=== PATIENT | male | born 1995 | race Caucasian/White ===

== ENCOUNTER 2020-08-16 20:28 | Emergency (ER) | payer MEDICAID, SELFPAY ==
[2020-08-16 21:28] VITALS: BP 134/69; PULSE 82; RESP 16; TEMP 36.8; O2SAT 99; BMI 28.2
--- NOTE | 2020-08-16 22:33 | ED.NECK ---
HPI - Neck Pain/Injury General Chief Complaint: Neck Pain/Injury Stated Complaint: NECK PAIN Time Seen by Provider: 08/16/20 22:11 Source: patient Mode of arrival: ambulatory Limitations: no limitations History of Present Illness HPI Narrative: Patient presents to ED for right-sided neck pain for the past 2 days. Patient states he was at home the bathroom and coughed real hard and suddenly felt pain in his right posterior neck after walking. Patient states he pulled a muscle. Patient denies any head trauma or recent blunt neck trauma. Patient denies falling to the ground. Patient denies any neck stiffness, fever, chills, headache, nausea, vomiting, photophobia, or dizziness. MD complaint: neck pain Related Data Previous Rx's Medication Instructions Recorded cyclobenzaprine 10 mg PO TID PRN #18 tab 08/16/20 naproxen 500 mg PO BID PRN #20 tab 08/16/20 Allergies Allergy/AdvReac Type Severity Reaction Status Date / Time No Known Allergies Allergy Verified 08/16/20 21:26 Review of Systems Review of Systems: Yes all other systems are reviewed and are negative Constitutional: Constitutional: Reports as per HPI and Reports no additional constitutional complaints Eyes: Eyes: Reports as per HPI and Reports no additional eye complaints ENT: Reports system reviewed and no additional complaints, except as documented and Reports neck pain Cardiovascular: Cardiovascular: Reports as per HPI and Reports no additional cardiovascular complaints Respiratory: Respiratory: Reports as per HPI and Reports no additional respiratory complaints Gastrointestinal: Gastrointestinal: Reports as per HPI and Reports no additional gastrointestinal complaints Genitourinary: Genitourinary: Reports no additional male genitourinary complaints and Reports as per HPI Musculoskeletal: Musculoskeletal: Reports no additional musculoskeletal complaints, Reports as per HPI and Reports neck pain Neurologic: Reports system reviewed and no additional complaints, except as documented and Reports as per HPI Psychiatric: Psychiatric: Reports no additional psychiatric complaints and Reports as per HPI [facility] Past Medical History Medical History (Updated 08/17/20 @ 00:00 by Sam Dasonja) Asthma Social History Social History Smoked in Last 30 Days: No Use of substances other than those prescribed or required for medical reasons: Yes Substance Use Type: Marijuana Advance Directives: No Advance Directives Information Provided: No Physical Exam Vital Signs: Vital Signs: Last Vital Signs Temp 98.2 F 08/16/20 21:28 Pulse 82 08/16/20 21:28 Resp 16 08/16/20 21:28 BP 134/69 08/16/20 21:28 Pulse Ox 99 08/16/20 21:28 Body Mass Index 28.2 Const: General: cooperative, healthy appearing, comfortable, no acute distress, well developed and alert Orientation/consciousness: patient oriented x3 HENMT: Head: Yes normal to inspection, Yes No palpable skull fracture present, Yes normocephalic, Yes atraumatic, No abrasion, No Pedroza's sign, No contusion, No cranial bruits, No hematoma, No laceration, No occipital foramen tenderness, No palpable skull fracture, No raccoon eyes, No scalp lesion, No scalp tenderness, No Temporal artery tenderness present and No periorbital ecchymosis Eyes: General: appearance normal, both eyes and all related structures Neck: Other: Patient also states pain on movement when turning head to the right. Neck: Yes normal visual inspection, Yes full ROM, Yes no lymphadenopathy, Yes no meningeal signs, Yes trachea midline, Yes supple and Yes tender (Right lateral posterior neck. Negative for cervical spine tenderness.) Chest: Chest palpation & inspection: normal inspection of the chest and normal palpation of entire chest wall Resp: Effort & Inspection: normal respiratory effort and able to speak in complete sentences Auscultation: clear to auscultation bilaterally Cardio: Jugular venous distension: no JVD Heart sounds: S1 normal heart sound present and S2 normal heart sound present GI: Inspection: Yes normal to inspection and No abdominal wall ecchymosis Palpation (GI): Soft to palpation, not firm, nontender, no guarding and not rigid : General: No CVA tenderness and Yes no CVA tenderness Back/Spine/Pelvis: Back: no CVA tenderness, No CVA tenderness and No back tenderness Skin: General skin exam: no rashes or lesions noted and elasticity normal Neuro: General: patient oriented x3, no meningeal signs and CN's II-XI intact bilaterally Cranial nerves: Yes CN's II-XII intact bilaterally Extrem: General: Yes normal to inspection and Yes full ROM Psych: Appearance: grossly normal, well kempt and not disheveled Course Course Course Narrative: Patient's history physical exam indicate neck muscle strain. History physical exam does not indicate meningitis or fracture. Reevaluation(s) Reevaluation #1: Patient discharged with NSAIDs and Flexeril MDM - Neck Pain/Injury MDM Narrative Medical decision making narrative: Neck strain Discharge Plan Discharge Clinical Impression: Strain of neck muscle Patient Disposition: Home, Self-Care Instructions: Cervical Strain (ED) Additional Instructions: Return to the ED immediately neck stiffness, headache, photophobia, fever, chills, nausea, vomiting, or any other concerning symptoms. Prescriptions: New naproxen 500 mg tablet 500 mg PO BID PRN (Reason: pain) Qty: 20 RF: 0 cyclobenzaprine 10 mg tablet 10 mg PO TID PRN (Reason: muscle spasm) Qty: 18 RF: 0 Interventions: ED Discharge Assessment Last Done: 08/16/20 23:00 Discharge Date/Time: 08/16/20 23:01 Print Language: Upper Sorbian
== END 2020-08-16 23:01 | disposition home or self-care (01) ==
PROVIDERS: Emergency Provider Internal Medicine; PCP Pediatrics
DX: S16.1XXA Strain of muscle, fascia and tendon at neck level, initial encounter (principal); X50.9XXA Other and unspecified overexertion or strenuous movements or postures, initial encounter; J45.909 Unspecified asthma, uncomplicated; F12.90 Cannabis use, unspecified, uncomplicated; Y93.9 Activity, unspecified; Y92.019 Unspecified place in single-family (private) house as the place of occurrence of the external cause; Y99.9 Unspecified external cause status
CPT/HCPCS: 99283

== ENCOUNTER 2021-02-05 14:21 | Outpatient (REF) | payer MEDICAID, SELFPAY | END 2021-02-05 14:22 | disposition home or self-care (01) | LOC: HO.LAB 14:21 | PROVIDERS: Visit Provider Internal Medicine | DX: Z20.822 Contact with and (suspected) exposure to COVID-19 (principal) | CPT/HCPCS: C9803; U0003; U0005 ==

== ENCOUNTER 2021-03-25 18:50 | Emergency (ER) | payer OTHER, MEDICAID, SELFPAY ==
[2021-03-25 19:00] VITALS: BP 130/70; PULSE 67; RESP 17; TEMP 36.7; O2SAT 97; BMI 28.2
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
[2021-03-25] MEDS: Ibuprofen 600 MG TABLET PO (20:14)
--- NOTE | 2021-03-25 20:51 | PC.NURSE ---
PT WAS NERVOUS ABOUT FROM THE SMOKE IN AIR BAG DO TO HAVING ASTHMA. PT LS CLEAR AND HE DENIES FEELING SOB.
== END 2021-03-25 20:54 | disposition home or self-care (01) ==
PROVIDERS: Emergency Provider Internal Medicine; PCP Internal Medicine
DX: S29.012A Strain of muscle and tendon of back wall of thorax, initial encounter (principal); V43.62XA Car passenger injured in collision with other type car in traffic accident, initial encounter; Y93.89 Activity, other specified; Y92.414 Local residential or business street as the place of occurrence of the external cause; Y99.9 Unspecified external cause status
CPT/HCPCS: 99283; 99284

== ENCOUNTER 2023-08-21 12:24 | Emergency (ER) | payer MEDICAID, SELFPAY ==
[2023-08-21 12:26] VITALS: BP 142/73; PULSE 58; RESP 17; TEMP 35.6; O2SAT 97; BMI 34.7
--- NOTE | 2023-08-21 12:30 | ED.GENADULT ---
HPI - General Adult General Chief complaint: Headache Stated complaint: severe headache Time Seen by Provider: 08/21/23 18:15 Source: patient Mode of arrival: ambulatory Limitations: no limitations History of Present Illness HPI narrative: Patient is a 28 year old assigned male at with no reported medical history presenting to the emergency department today with a headache, neck pain, nausea, and vomiting. Patient states that starting over the last 3 days he has had a headache and starting today, he had nausea and an episode of vomiting. Patient denies any dizziness, lightheadedness, abdominal pain, fever, chills, blurry vision, double vision, loss of vision, chest pain, difficulty breathing, shortness of breath, back pain, night sweats, pain with urination, increased urinary frequency, increased urinary urgency, blood in his urine or stool, syncope or a near syncopal episode, recent trauma or falls, bowel incontinence, bladder incontinence, bowel retention, bladder retention, or any other complaints at this time. Onset (ago): day(s) (3) Location: head Relieving factors: none Exacerbating factors: none Associated symptoms: nausea/vomiting Treatments prior to arrival: none Related Data Previous Rx's Medication Instructions Recorded cyclobenzaprine 10 mg tablet 10 mg PO TID PRN muscle spasm #18 08/16/20 tabs naproxen 500 mg tablet 500 mg PO BID PRN pain #20 tabs 08/16/20 cyclobenzaprine 10 mg tablet 10 mg PO Q8H #14 tabs 03/25/21 ibuprofen 600 mg tablet 600 mg PO Q6H PRN pain #20 tabs 03/25/21 [id number] 1 cap PO Q6H PRN pain #7 caps 08/21/23 50 mg-300 mg-40 mg capsule (Fioricet) ondansetron 4 mg disintegrating 4 mg PO Q8H 3 days #9 tabs 08/21/23 tablet Allergies Allergy/AdvReac Type Severity Reaction Status Date / Time No Known Allergies Allergy Verified 03/25/21 18:59 Review of Systems Constitutional: Constitutional: Reports no additional constitutional complaints, Denies chills, Denies fever(s), Reports headache(s) and Denies night sweats Eyes: Eyes: Reports no additional eye complaints, Denies blurry vision, Denies change in vision, Denies diplopia, Denies eye discharge, Denies loss of vision and Denies eye pain ENT: Denies dizziness and Reports headache(s) Cardiovascular: Cardiovascular: Reports no additional cardiovascular complaints, Denies chest pain, Denies lightheadedness, Denies Loss of Consciousness and Denies dyspnea Respiratory: Respiratory: Reports no additional respiratory complaints and Denies dyspnea Gastrointestinal: Gastrointestinal: Reports no additional gastrointestinal complaints, Denies abdominal pain, Denies melena, Denies hematochezia, Denies change in bowel habits, Denies change in stool character, Reports nausea and Reports vomiting Genitourinary: Genitourinary: Reports no additional male genitourinary complaints, Denies hematuria, Denies oliguria, Denies difficulty urinating, Denies dysuria, Denies urinary frequency, Denies urinary hesitancy, Denies urinary incontinence and Denies urinary urgency Musculoskeletal: Musculoskeletal: Reports no additional musculoskeletal complaints, Denies numbness and Denies tingling Neurologic: Denies dizziness, Reports headache(s), Denies loss of vision, Denies numbness and Denies tingling Psychiatric: Psychiatric: Reports no additional psychiatric complaints Endocrine: Endocrine: Reports no additional endocrine complaints Hematologic/Lymphatic: Hematologic/Lymphatic: Reports no additional hematologic/lymphatic complaints Allergic/Immunologic: Allergic/Immunologic: Reports no additional allergic/immunologic complaints PMFSH Past Medical History Attestation statement: The following information was validated with the patient. Source: old records reviewed and nursing notes reviewed Medical History Asthma Social History Social History Substance Use Type: Marijuana Advance Directives: No Advance Directives Information Provided: Yes Physical Exam ED Vital Signs: Vital Signs - 24 hr 08/21/23 12:26 Temperature 96.0 F L Pulse Rate 58 Respiratory Rate 17 Blood Pressure 142/73 H Pulse Oximetry 97 Oxygen Delivery Method Room Air BMI result Body Mass Index 34.7 Const General: cooperative, no acute distress, alert and awake Nutritional Appearance: well nourished Orientation/consciousness: patient oriented x3 Limitations: no limitations HENMT Head: Yes normal to inspection and Yes atraumatic Ears: hearing grossly normal bilaterally and external ears normal General nose exam: Normal external nose present, no nasal discharge noted and no epistaxis Face and sinus: Yes normal facial exam, No abrasion and No laceration Mouth: Normal oral and palatal mucosa present, no drooling and no muffled voice Eyes General: appearance normal, both eyes and all related structures Periorbital: periorbital findings normal Eyelids: Yes eyelids normal Conjunctivae: conjunctivae normal Pupils: Equal, round and reactive pupils present EOM: EOMs intact bilaterally Neck Neck: Yes normal visual inspection, Yes full ROM and Yes no lymphadenopathy Chest Chest palpation & inspection: normal inspection of the chest Resp Effort & Inspection: normal respiratory effort and able to speak in complete sentences GI Inspection: Yes normal to inspection Neuro General: patient oriented x3 and moves all extremities Cranial nerves: Yes Equal, round and reactive pupils present Cognition (Neuro): normal cognition Motor exam (neuro): 5/5 motor strength present throughout Sensory Exam: Normal double simultaneous stimulation for sensation Coordination: [id number] test normal Extrem General: Yes normal to inspection, Yes full ROM and Yes capillary refill normal Psych Appearance: grossly normal Mental Status: mental status grossly normal Affect: normal affect Attitude: cooperative Thought process: Normal thought process present Thought content: Normal thought content present Insight: Good insight present (Psych) Course Course Course Narrative: RME performed by Isabel Little PA-C. Patient is a 28 year old assigned male at presenting to the emergency department with a headache, congestion, and neck pain. Patient states that his pain feels better when he looks down. Some nausea and vomiting. Detailed physical exam and review of systems are deferred to the district manager primary care sales. Labs and swabs ordered. Patient placed back in the waiting room pending room availability and results. Medications Administered Discontinued Medications Generic Name Dose Route Start Last Admin Trade Name Kaykay PRN Reason Stop Dose Admin Acetaminophen/Butalbital/Caffeine 1 tab 08/21/23 18:15 08/21/23 18:22 Butalb/Acetamin/Caff 50/325/40 Tablet PO 08/21/23 18:16 1 tab ONCE ONE Administration Ondansetron HCl 4 mg 08/21/23 18:15 08/21/23 18:21 Ondansetron Odt 4 Mg Tab.Rapdis TRANSLINGU 08/21/23 18:16 4 mg ONCE ONE Administration Medical Decision Making Medical Decision Making MDM Narrative: Patient is a 28 year old assigned male at with no reported medical history presenting to the emergency department today with a headache, nausea, and vomiting. Patient's physical exam was unremarkable including no meningeal signs. Patient's blood work was unremarkable. Patient's COVID-19, influenza, RSV, and strep tests were all negative. I explained my physical exam findings as well as all test results to the patient. I answered all questions asked by the patient. Patient received PO Fiorcet and Zofran which he stated helped his symptoms significantly. I stressed the importance of the patient taking his medication as prescribed. I stressed the importance of the patient following up with his primary care provider. I stressed the importance of the patient returning to the emergency department immediately if his symptoms were to worsen or if he were to develop any dizziness, shortness of breath, difficulty breathing, chest pain, blurry vision, loss of vision, nausea, vomiting, abdominal pain, fever, chills, back pain, or any other complaints. Patient verbalized agreement and understanding with this treatment plan and discharge. Differential Diagnosis Differential Diagnoses: The differential diagnosis associated with the presentation includes Migraine COVID-19 Influenza RSV Viral illness Headache Admission/Observation Consideration of admission/observation: Escalation of care including admission/observation considered Patient would have been admitted to the hospital had his work up had any findings where hospital admission was appropriate and his clinical presentation warranted hospital admission. Lab Data [facility] Lab Attestation statement: I reviewed the patient's lab results. My interpretation of these results are in the [facility] Rationale portion of this note. 08/21/23 12:41 08/21/23 12:41 Labs: Lab Results 08/21/23 Range/Units 12:41 WBC 7.5 (4.8-10.8) X10*3/uL RBC 5.62 (4.60-5.80) X10*6/uL Hgb 15.0 (14.0-18.0) g/dl Hct 45.3 (42.0-52.0) % MCV 80.6 (80.0-98.0) fL MCH 26.7 L (27.0-33.0) pg MCHC 33.1 (31.0-36.0) g/dl RDW 12.9 (11.0-16.0) % Plt Count 295 (160-400) X10*3/uL MPV 9.3 L (9.4-12.4) fL Immature Gran % (Auto) 0.3 (0.0-0.4) % Neut % (Auto) 53.1 (45-73) % Lymph % (Auto) 33.0 (20-40) % [place] % (Auto) 9.1 (2-11) % Eos % (Auto) 4.0 (0-4) % Baso % (Auto) 0.5 (0-2) % Lymph # (Auto) 2.5 (1.2-4.9) X10*3/uL [place] # (Auto) 0.7 (0.1-1.2) X10*3/uL Eos # (Auto) 0.3 (0.0-0.4) X10*3/uL Baso # (Auto) 0.0 (0.0-0.2) X10*3/uL Abs Immat Gran (auto) 0.02 (0.00-0.03) X10*3/uL Absolute Neuts (auto) 4.0 (2.0-8.3) x10*3/uL Absolute Nucleated RBC 0.000 (0.0-0.012) X10*3/uL Nucleated RBC % (auto) 0.0 (0.0-0.2) /100WBC Sodium 139 (135-145) mmol/L Potassium 3.9 (3.3-5.1) mmol/L Chloride 106 (96-108) mmol/L Carbon Dioxide 25 (22-29) mmol/L Anion Gap 12 (12-20) BUN 12 (9-16) mg/dL Creatinine 0.80 (0.5-1.4) mg/dL Estim Creat Clear Calc 151.6 Estimated GFR > 60 Random Glucose 133 H (60-115) mg/dL Calcium 9.7 (8.4-10.2) mg/dL Magnesium 1.9 (1.6-2.6) mg/dL Total Bilirubin 0.3 (0.0-1.0) mg/dL AST 20 (5-37) U/L ALT 32 (0-40) U/L Alkaline Phosphatase 58 (39-117) U/L Total Protein 7.9 (6.5-8.0) g/dL Albumin 4.6 (3.5-5.0) g/dL Influenza Type A (PCR) NEGATIVE (Negative) Influenza Type B (PCR) NEGATIVE (Negative) RSV RNA Qual (PCR) NEGATIVE (Negative) SARS-CoV-2 RNA (RT-PCR) NEGATIVE (Negative) S. pyogenes GrpA LIBBY Negative (Negative) Tests considered The following testing was considered but not selected: A CT of the head was considered however, the patient's current clinical presentation does not warrant it. I discussed this with the patient who verbalized agreement and understanding with this. Prescription Management I considered prescription management with: Pain Medication (patient prescribed pain medication) Discharge Plan Discharge Clinical Impression: Migraine Patient Disposition: Home, Self-Care Instructions: Migraine Headache (ED) Additional Instructions: Follow up with your primary care provider. Return to the emergency department immediately if your symptoms worsen or if you develop any dizziness, shortness of breath, difficulty breathing, chest pain, blurry vision, loss of vision, nausea, vomiting, abdominal pain, fever, chills, back pain, or any other complaints. Prescriptions: New ondansetron 4 mg tablet,disintegrating 4 mg PO Q8H 3 Days Qty: 9 0RF [id number]-[id number]-mzcr [Fioricet] 50-300-40 mg capsule 1 cap PO Q6H PRN (Reason: pain) Qty: 7 0RF No Action naproxen 500 mg tablet 500 mg PO BID PRN (Reason: pain) Qty: 20 0RF cyclobenzaprine 10 mg tablet 10 mg PO TID PRN (Reason: muscle spasm) Qty: 18 0RF Rx Instructions: side effect is drowsiness. Do not take at work or while driving. ibuprofen 600 mg tablet 600 mg PO Q6H PRN (Reason: pain) Qty: 20 0RF cyclobenzaprine 10 mg tablet 10 mg PO Q8H Qty: 14 0RF Referrals: [facility] [place] [facility] [Provider Group] (Call to establish and follow up with a primary care provider. If you already have a primary care provider, please follow up with them.) [facility] [place] [facility] [Provider Group] (Call to establish and follow up with a primary care provider. If you already have a primary care provider, please follow up with them.) [facility] [place] [facility] [Provider Group] (Call to establish and follow up with a primary care provider. If you already have a primary care provider, please follow up with them.) Discharge Date/Time: 08/21/23 18:25 Print Language: Greenlandic
[2023-08-21 12:46] LABS: MANUAL DIFF FLAG NO
[2023-08-21 12:48] LABS: Basophils Percent Auto 0.5 % (0-2); Eosinophils Absolute Auto 0.3 X10*3/uL (0.0-0.4); Hematocrit 45.3 % (42.0-52.0); Imm Gran Abs Auto 0.02 X10*3/uL (0.00-0.03); Imm Gran Pct Auto 0.3 % (0.0-0.4); Lymphocytes Absolute Auto 2.5 X10*3/uL (1.2-4.9); Mean Corpuscular HGB Conc 33.1 g/dl (31.0-36.0); Mean Corpuscular Hemoglobin 26.7 pg (27.0-33.0); Mean Corpuscular Volume 80.6 fL (80.0-98.0); Mean Platelet Volume 9.3 fL (9.4-12.4); Monocytes Absolute Auto 0.7 X10*3/uL (0.1-1.2); Monocytes Percent Auto 9.1 % (2-11); Neutrophils Percent Auto 53.1 % (45-73); Platelet Count 295 X10*3/uL (160-400); Red Blood Count 5.62 X10*6/uL (4.60-5.80); Red Cell Distribution Width 12.9 % (11.0-16.0); White Blood Count 7.5 X10*3/uL (4.8-10.8)
[2023-08-21 13:01] LABS: IDNOW Serial# 08D9AD1C
[2023-08-21 13:02] LABS: Strep A Nucleic Acid Negative (Negative)
[2023-08-21 13:05] LABS: Alanine Aminotransferase 32 U/L (0-40); Albumin Level 4.6 g/dL (3.5-5.0); Alkaline Phosphatase 58 U/L (39-117); Anion Gap 12 (12-20); Aspartate Amino Transferase 20 U/L (5-37); Bilirubin Total 0.3 mg/dL (0.0-1.0); Blood Urea Nitrogen 12 mg/dL (9-16); Calcium 9.7 mg/dL (8.4-10.2); Carbon Dioxide 25 mmol/L (22-29); Chloride 106 mmol/L (96-108); Creatinine Clr Calc Pharmacy 151.6; Estimated Glomerular Filt Rate > 60; Glucose Random 133 mg/dL (60-115); Magnesium 1.9 mg/dL (1.6-2.6); Potassium 3.9 mmol/L (3.3-5.1); Sodium 139 mmol/L (135-145); Total Protein 7.9 g/dL (6.5-8.0)
[2023-08-21 13:32] LABS: Influenza A PCR NEGATIVE (Negative); Influenza B PCR NEGATIVE (Negative); Resp Syncy Virus RNA Qual PCR NEGATIVE (Negative); SARS COV2 PCR INHOUSE NEGATIVE (Negative)
[2023-08-21] MEDS: Ondansetron ODT 4 MG TAB.RAPDIS TRANSLINGU (18:21)
[2023-08-21] MEDS: Butalb/Acetamin/Caff 50/325/40 TABLET 1 TAB PO (18:22)
--- NOTE | 2023-08-21 18:24 | PC.NURSE ---
PT WAS REASSESSED BT TRIAGE PROVIDER, MEDICATED AND DISCHARGED, PT AGREES TO DISCHARGE PLAN
== END 2023-08-21 18:25 | disposition home or self-care (01) ==
LOC: HO.ED 18:21
PROVIDERS: Physician Assistant Medical; Emergency Provider Emergency Medicine Emergency Medical Services
DX: G43.909 Migraine, unspecified, not intractable, without status migrainosus (principal); J45.909 Unspecified asthma, uncomplicated; Z11.52 Encounter for screening for COVID-19; Z20.828 Contact with and (suspected) exposure to other viral communicable diseases
CPT/HCPCS: 0241U; 80053; 83735; 85025; 87651; 99282; 99283

== ENCOUNTER 2023-11-24 12:46 | Emergency (ER) | payer MEDICAID, SELFPAY ==
--- NOTE | ~2023-11-24 | XR_ITS ---
EXAMINATION: Right ankle and foot x-ray CLINICAL INFORMATION: Injury COMPARISON: None. TECHNIQUE: 3 views of the right ankle. 3 views of the right foot. FINDINGS: Bone alignment is normal. No fracture or dislocation. Normal joint spaces. Normal soft tissues. XR/XR ankle RT min 3V IMPRESSION: Unremarkable examination.
--- NOTE | ~2023-11-24 | XR_ITS ---
EXAMINATION: Right ankle and foot x-ray CLINICAL INFORMATION: Injury COMPARISON: None. TECHNIQUE: 3 views of the right ankle. 3 views of the right foot. FINDINGS: Bone alignment is normal. No fracture or dislocation. Normal joint spaces. Normal soft tissues. XR/XR foot RT min 3V IMPRESSION: Unremarkable examination.
[2023-11-24 12:49] VITALS: BP 125/51; PULSE 63; RESP 18; TEMP 36.6; O2SAT 96; BMI 31.0
--- NOTE | 2023-11-24 12:57 | ED.GENADULT ---
HPI - General Adult General Chief complaint: Extremity Injury, Lower Stated complaint: r ankle inj basketball yesterday Time Seen by Provider: 11/24/23 15:32 Source: patient Mode of arrival: ambulatory Limitations: no limitations History of Present Illness ED Provider: Haley TANG narrative: Patient is a 28-year-old male who presents emergency department for evaluation of traumatic right ankle pain, reports last night he was walking and rolled his ankle with inversion of the foot. Approximately 1 hour later the pain BP and to be more severe and who was unable to put weight on it. Pain continues today, today he reports that he awoke and was noticing swelling and increasing pain to the anterior aspect of the ankle. He denies numbness tingling or cold sensation to the foot. Related Data Previous Rx's ?Medication ?Instructions ?Recorded cyclobenzaprine 10 mg tablet 10 mg PO TID PRN muscle spasm #18 08/16/20 tabs naproxen 500 mg tablet 500 mg PO BID PRN pain #20 tabs 08/16/20 cyclobenzaprine 10 mg tablet 10 mg PO Q8H #14 tabs 03/25/21 ibuprofen 600 mg tablet 600 mg PO Q6H PRN pain #20 tabs 03/25/21 lwnunwtzan-asvvcjrtrxfhn-eusoruei 1 cap PO Q6H PRN pain #7 caps 08/21/23 50 mg-300 mg-40 mg capsule (Fioricet) ondansetron 4 mg disintegrating 4 mg PO Q8H 3 days #9 tabs 08/21/23 tablet Allergies Allergy/AdvReac Type Severity Reaction Status Date / Time No Known Allergies Allergy Verified 11/24/23 12:51 Review of Systems Review of Systems: Yes all other systems are reviewed and are negative [facility] Past Medical History Attestation statement: The following information was validated with the patient. Source: old records reviewed Medical History Asthma Social History Social History Substance Use Type: Marijuana Advance Directives: No Advance Directives Information Provided: No Do you have a plan to hurt others: No Plan Physical Exam ED Vital Signs: Vital Signs - 24 hr 11/24/23 12:49 Temperature 98 F Pulse Rate 63 Respiratory Rate 18 Blood Pressure 125/51 L Pulse Oximetry 96 Oxygen Delivery Method Room Air BMI result Body Mass Index 31.0 Appearance: Alert.?Oriented to person, place and time. No acute distress.?Normal affect. Neck: Normal inspection.? Neck supple.?? CVS: Heart sounds normal. Normal heart rate and rhythm.? Pulses normal.?? Respiratory: No respiratory distress.? Lung sounds clear to auscultation bilaterally?? Skin: Skin warm and dry.? Normal skin color.? Extremities: Localized edema to the right anterior ankle mortise/medial malleolus with 2+ DP/PT pulse bilaterally no obvious deformity. Neuro: Moves all extremities spontaneously. Sensation intact bilaterally. Ambulates with Antalgic gait. Course Course Course Narrative: RME performed by Isabel Little PA-C. Patient is a 28 year old assigned male at presenting to the emergency department with right ankle pain. Patient states he rolled his ankle yesterday and continues to have pain. Detailed physical exam and review of systems are deferred to the internal communications specialist. Imaging ordered. Patient placed back in the waiting room pending room availability and results. Medical Decision Making Medical Decision Making MDM Narrative: patient is a 28-year-old male who presents emergency department for evaluation of traumatic right ankle pain. Overall he appears well, nontoxic, afebrile. Extremity is neurovascularly intact distally. XR is without evidence of acute fracture dislocation. Symptoms at this time most consistent with a sprain. Provided with Aircast and crutches and instructed on appropriate usage. Advised conservative treatment in addition to acetaminophen/ ibuprofen for pain management. Outpatient follow-up with primary care provider. Discussed return precautions. All questions answered, stable for discharge Differential Diagnosis Differential Diagnoses: The differential diagnosis associated with the presentation includes ( see narrative above) Independent Interpretation I performed an independent interpretation of an: Plain X-Ray ( no acute fracture dislocation of the right foot/ankle) Radiology Impression Discussion of test interpretation with radiology: I have reviewed the radiologist's reading. Radiologist Impression: XR/XR ankle RT min 3V IMPRESSION: Unremarkable examination. External Record Review External record reviewed: Outpatient record Prescription Management I considered prescription management with: Pain Medication ( acetaminophen/ibuprofen) Discharge Plan Discharge Clinical Impression: Sprain of ankle Qualifiers: Encounter type: initial encounter Laterality: right Patient Disposition: Home, Self-Care Instructions: Ankle Sprain (DC), Crutch Instructions (ED), R.I.C.E. Treatment (ED) Additional Instructions: You can take ibuprofen 200 mg, 3 tablets (600mg) every 6-8 hours as needed for pain, in addition to Tylenol 500 mg, 2 tablets (1,000mg) every 4-6 hours as needed for pain, but not to exceed 3 doses daily (3,000mg).? use the Aircast and crutches as needed for assistance with walking until your improves. As discussed, ankle sprains can take up to 6 weeks to fully heal for some people. Follow-up with your primary care provider for persistent symptoms. Prescriptions: No Action naproxen 500 mg tablet 500 mg PO BID PRN (Reason: pain) Qty: 20 0RF cyclobenzaprine 10 mg tablet 10 mg PO TID PRN (Reason: muscle spasm) Qty: 18 0RF Rx Instructions: side effect is drowsiness. Do not take at work or while driving. ibuprofen 600 mg tablet 600 mg PO Q6H PRN (Reason: pain) Qty: 20 0RF cyclobenzaprine 10 mg tablet 10 mg PO Q8H Qty: 14 0RF ondansetron 4 mg tablet,disintegrating 4 mg PO Q8H 3 Days Qty: 9 0RF ujvavqlamd-yyqhuzqsgnejx-niey [Fioricet] 50-300-40 mg capsule 1 cap PO Q6H PRN (Reason: pain) Qty: 7 0RF Referrals: [facility] [Primary Care Provider] - Print Language: Israeli
[2023-11-24 16:00] VITALS: BP 125/51; PULSE 63; RESP 18; TEMP 36.6; O2SAT 96
== END 2023-11-24 16:01 | disposition home or self-care (01) ==
PROVIDERS: Emergency Provider Emergency Medicine
DX: S93.401A Sprain of unspecified ligament of right ankle, initial encounter (principal); M25.571 Pain in right ankle and joints of right foot; Y93.67 Activity, basketball; Y93.9 Activity, unspecified; Y92.310 Basketball court as the place of occurrence of the external cause; Y99.8 Other external cause status
CPT/HCPCS: 73610; 73630; 99282; 99283

== ENCOUNTER 2024-10-09 12:21 | Emergency (ER) | payer MEDICAID, SELFPAY ==
[2024-10-09 12:29] VITALS: BP 128/96; PULSE 64; RESP 16; TEMP 36.3; O2SAT 94; BMI 30.6
--- NOTE | 2024-10-09 12:34 | ED_ITS ---
HPI - Dental/Oral General Chief complaint: Dental/Oral Stated complaint: Dental Infection Time Seen by Provider: 10/09/24 12:43 Source: patient, RN notes reviewed and old records reviewed Mode of arrival: ambulatory Limitations: no limitations History of Present Illness ED Provider: Cynthia TANG Narrative: Patient is a 29-year-old male with history of smoking presenting to the emergency department with complaint of right lower jaw pain which began yesterday. He used Orajel and salt water gargle, also stop smoking and states pain has improved this morning. When he woke this morning he noted swelling to his right lower jaw. Denies fevers or chills. Denies any discharge or drainage. Does not have a dentist currently but states his girlfriend is making phone calls to find him a dentist to follow up with today. Related Data Previous Rx's ?Medication ?Instructions ?Recorded cyclobenzaprine 10 mg tablet 10 mg PO TID PRN muscle spasm #18 08/16/20 tabs naproxen 500 mg tablet 500 mg PO BID PRN pain #20 tabs 08/16/20 cyclobenzaprine 10 mg tablet 10 mg PO Q8H #14 tabs 03/25/21 ibuprofen 600 mg tablet 600 mg PO Q6H PRN pain #20 tabs 03/25/21 xbjgvnnuqr-fkjmcmrsklyat-rrtyexdi 1 cap PO Q6H PRN pain #7 caps 08/21/23 50 mg-300 mg-40 mg capsule (Fioricet) ondansetron 4 mg disintegrating 4 mg PO Q8H 3 days #9 tabs 08/21/23 tablet amoxicillin 875 mg-potassium 1 tab PO TID 7 days #21 tabs 10/09/24 clavulanate 125 mg tablet chlorhexidine gluconate 0.12 % 15 ml buccal BID 7 days #118 mL 10/09/24 mouthwash Allergies Allergy/AdvReac Type Severity Reaction Status Date / Time No Known Allergies Allergy Verified 10/09/24 12:32 Review of Systems 2 Review of Systems: As per HPI Yes all other systems are reviewed and are negative Constitutional: Constitutional: Reports as per HPI PMFSH Past Medical History Medical History Asthma Social History Social History Substance Use Type: Marijuana Physical Exam 2 Vital Signs: Vital Signs: Last Vital Signs Temp 97.4 F 10/09/24 12:29 Pulse 64 10/09/24 12:29 Resp 16 10/09/24 12:29 BP 128/96 H 10/09/24 12:29 Pulse Ox 94 10/09/24 12:29 O2 Del Method Room Air 10/09/24 12:29 BMI result Body Mass Index 30.6 Vital signs have been reviewed and appear to be correct. Blood pressure normal. Heart rate normal. Respiratory rate normal. Temperature normal. Oxygen saturation normal. Const: General: cooperative, healthy appearing and no acute distress O rientation/consciousness: oriented to person, oriented to place, oriented to time and patient oriented x3 Limitations: no limitations HEENT: Head: Yes normocephalic and Yes atraumatic Ears: external ears normal General nose exam: Normal external nose present Face and sinus: Yes face symmetric Face images: 1. mild swelling Mouth: Normal oral and palatal mucosa present, lip normal, tongue normal, oropharynx normal, moist mucous membranes, no audible dysphonia and no drooling Teeth and gingiva: poor dentition Teeth image: 1. tooth fractured, gingival erythema and edema without fluctuance Throat: Yes uvula midline Eyes: Pupils: Equal, round and reactive pupils present Neck: Neck: Yes normal visual inspection and Yes supple Lymphatic: no lymphadenopathy noted Resp: Effort & Inspection: normal respiratory effort and able to speak in complete sentences Auscultation: clear to auscultation bilaterally Cardio: Rate: regular rate Rhythm: regular rhythm Heart sounds: S1 normal heart sound present and S2 normal heart sound present Skin: General skin exam: elasticity normal and turgor normal Neuro: General: oriented to person, oriented to place, oriented to time, patient oriented x3, moves all extremities, no focal motor deficits and CN's II- XI intact bilaterally Cranial nerves: Yes Equal, round and reactive pupils present Cognition (Neuro): normal cognition Extrem: General: Yes full ROM, Yes no pedal edema and Yes no calf tenderness Psych: Mental Status: mental status grossly normal Affect: normal affect Thought process: Normal thought process present Medical Decision Making Medical Decision Making MDM Narrative: Patient is a 29-year-old male with history of smoking presenting to the emergency department with complaint of right lower jaw pain which began yesterday. On exam patient is awake, A+Ox3, VS WNL, afebrile, normal neurological exam without focal deficits, physical exam findings as above. Given reported symptoms and physical exam findings, initial differential includes but is not limited to toothache, dental infection, dental abscess. No visible abscess to drain. Will discharge patient on augmentin and chlorhexidine mouthwash. Patient provided with list of dental clinics and advised to follow up [facility]. Strict return precautions discussed with patient. Patient verbalized understanding of and agreement with plan. Differential Diagnosis Differential Diagnoses: The differential diagnosis associated with the presentation includes As per [facility] Admission/Observation Consideration of admission/observation: Escalation of care including admission/observation considered Patient would have been admitted to the hospital had their work up had any findings where hospital admission was appropriate and their clinical presentation warranted hospital admission. External Record Review External record reviewed: Inpatient record, Office record and Outpatient record Prescription Management I considered prescription management with: Antibiotic Discharge Plan Discharge Clinical Impression: Dental abscess Patient Disposition: Home, Self-Care Instructions: Dental Abscess (ED) Additional Instructions: You were evaluated in the emergency department today for complaint of dental pain. You are being treated for a dental infection with antibiotics. Please complete the full course of antibiotics as prescribed even if your symptoms improve. IT IS IMPORTANT THAT YOU FOLLOW UP WITH YOUR DENTIST. We recommend that you take 600 mg of ibuprofen or 650 mg Tylenol every 6 hours as needed for pain. If necessary, you can alternate these medications every 3 hours. For example, at 9:00 a.m. take Tylenol, then at noon take ibuprofen, then at 3:00 p.m. take Tylenol, etc.. You can continue to swish with warm salt water several times daily. You are also being prescribed a mouthwash, use as prescribed. Follow up with a dentist as soon as possible. Return to the emergency department if you develop worsening pain, swelling, difficulty swallowing, difficulty breathing, fever, or any other concerning symptoms. Call or visit any of the clinics below to establish care with a dentist: [facility] [address] [place] [address] [facility] [address] [facility], [address] Timothy Francois [address] [place] [address] [facility] [address] [address] [facility] [address] [place], [place] [id number] [place] [address] [place] [address] Prescriptions: New chlorhexidine gluconate 0.12 % mouthwash 15 ml buccal BID 7 Days Qty: 118 0RF amoxicillin-pot clavulanate 875-125 mg tablet 1 tab PO TID 7 Days Qty: 21 0RF No Action naproxen 500 mg tablet 500 mg PO BID PRN (Reason: pain) Qty: 20 0RF cyclobenzaprine 10 mg tablet 10 mg PO TID PRN (Reason: muscle spasm) Qty: 18 0RF Rx Instructions: side effect is drowsiness. Do not take at work or while driving. ibuprofen 600 mg tablet 600 mg PO Q6H PRN (Reason: pain) Qty: 20 0RF cyclobenzaprine 10 mg tablet 10 mg PO Q8H Qty: 14 0RF ondansetron 4 mg tablet,disintegrating 4 mg PO Q8H 3 Days Qty: 9 0RF uhllxlojml-ffxijrvlhrdjw-iusj [Fioricet] 50-300-40 mg capsule 1 cap PO Q6H PRN (Reason: pain) Qty: 7 0RF Print Language: Qatari
[2024-10-09 12:50] VITALS: BP 128/96; PULSE 64; RESP 16; TEMP 36.3; O2SAT 94
--- OUTSIDE RECORDS SUMMARY | 2024-10-09 14:49 | XMS_ITS | Encounter Summary ---
Author Organization [facility] Address [address] [place] [phone] Phone Care Team Providers Care Sampler Tester Name Role Phone Cole Baires MD Primary Care Provider Unavailabl e Encounter Details Date Type Department Care Team (Late st Contact Info) Description 08/14/2014 Documentation EM Family Medicine [address] [place], [place] [id number] Family Medicine, Physician [address] [place], [place] [id number] Social History Tobacco Use Types Packs/Day Years Used Date Smoking Tobacco: Never Assessed Sex and Gender Information Value Date Recorded Sex Assigned at Not on file Legal Sex Male 5:00 PM EDT Gender Identity Not on file Sexual Orientation Not on file documented as of this encounter Plan of Treatment Not on file documented as of this encounter Visit Diagnoses Not on filedocumented in this encounter Care Teams Sampler Tester Relationship Specialty Start Date End Date Cole Baires MD PCP - General 01/06/17 documented as of this encounter
--- OUTSIDE RECORDS SUMMARY | 2024-10-09 14:49 | XMS_ITS | Clinical Summary ---
Author Organization [facility] Address [address] [place] [phone] Phone Care Team Providers Care Caponizer Name Role Phone Cole Baires MD Primary Care Provider Unavailabl e Immunizations Immunization Administration Dates Next Due DTaP 5 01/12/2001, 8,05/19/1997,12/27,1996 H1N1 05/15/2009 HPV Vaccine 9 Valent 11/06/2014 HPV, Quadrivalent 02/05/2014,07/05/2012 Hep A, ped/adol 11/06/2014,04/03/2014 Hep B, ped/adol 1996,1996,1996 Hib (PRP-T) 01/14/1998, 7,1996,08/16 IPV 05/19/1997,1996,1996 Influenza Split 07/05/2012,03/03/2011 Influenza, injectable, quadr ivalent, preservative free 02/05/2014 Influenza, injectable, trivalent 05/15/2009,11/2007,02/22/2007 MMR 01/12/2001,05/19/1997 Meningococcal Conj (Menactra) MCV4P 04/17/2008 OPV 01/12/2001 Tdap 02/22/2007 Varicella 1996 Family History Relation Name Status Comments Brother 1 Alive Brother: Alive and well, Alive and well Brother 2 Alive Brother: Alive and well, Alive and well Mother Mother: Asthma Sister Alive Sister: Alive a nd well Social History Tobacco Use Types Packs/Day Years Used Date Smoking Tobacco: Never Comments:Never smoker Sex and Gender Information Value Date Recorded Sex Assigned at Not on file Legal Sex Male 5:00 PM EDT Gender Identity Not on file Sexual Orientation Not on file Last Filed Vital Signs Vital Sign Reading Time Taken Comments Blood Pressure 131/76 04/02/2015 12:00 AM EST Pulse 61 04/02/2015 12:00 AM EST Temperature 35.9 ??C (96.7 ??F) 04/02/2015 12:[address] Respiratory Rate - - Oxygen Saturation 96% 08/08/2014 12:00 AM EDT Inhaled Oxygen Concentration - - Weight 71 kg (156 lb 9.6 oz) 04/02/2015 12:00 AM EST Height 167 cm (5' 5.75 ) 04/02/2015 12:00 AM EST Body Mass Index 25.47 04/02/2015 12:00 AM EST Plan of Treatment Health Maintenance Due Date Last Done Comments Varicella Vaccines (1 of 2 - 13+ 2-dose series) 2009 1996 DTaP,Tdap,and Td Vaccines (7 - Td or Tdap) 02/22/2017 02/22/2007, 01/12/2001, 01/14/1998, Additional history exists Influenza Vaccines (#1) 2023 02/06/20 14, 07/05/2012, 03/03/2011, Additional history exists COVID-19 Vaccine ( season) 2024 Hepatitis B Vaccines Completed 1996, 1996, 1996 HIB Vaccines Completed 01/14/1998, 04/29, 1996, Additional history exists IPV Vaccines Completed 01/12/2001, 04/29, 1996, Additional history exists MMR Vaccines Completed 01/12/2001, 05/19/1997 Meningococcal Vaccine Aged Out 04/17/2008 No darrion jordin eligible based on patient's age to complete this topic HPV Vaccines Completed 11/06/2014, 01/27, 07/05/2012 Hepatitis A Vaccines Completed 11/06/2014, 04/03/20 14 Men B Vaccine Aged Out No longer elig ible based on patient's age to complete this topic Pneumococcal Vaccine Aged Out No long er eligible based on patient's age to complete this topic Care Teams Caponizer Relationship Specialty Start Date End Date Cole Baires MD PCP - General 01/06/17
--- OUTSIDE RECORDS SUMMARY | 2024-10-09 14:49 | XMS_ITS | Encounter Summary ---
Author Organization [facility] Address [address] [place] [phone] Phone Care Team Providers Care Counter Supply Worker Name Role Phone Cole Baires MD Primary Care Provider Unavailabl e Encounter Details Date Type Department Care Team (Late st Contact Info) Description 11/07/2014 Documentation EM Family Medicine [address] [place], [place] [phone] Family Medicine, Physician [address] [place], [place] [phone] Social History Tobacco Use Types Packs/Day Years [...] on filedocumented in this encounter Care Teams Counter Supply Worker Relationship Specialty Start Date End Date Cole Baires MD PCP - General 01/06/17 documented as of this encounter
--- OUTSIDE RECORDS SUMMARY | 2024-10-09 14:49 | XMS_ITS | Encounter Summary ---
Author Organization [facility] Address [address] [place] [phone] Phone Care Team Providers Care Batch Dumper Name Role Phone Cole Baires MD Primary Care Provider Unavailabl e Encounter Details Date Type Department Care Team (Late st Contact Info) Description 02/01/2013 Documentation EM Family Medicine [address] [place], [place] [phone] Family Medicine, Physician [address] [place], [place] [address] Social History Tobacco Use Types Packs/Day Years [...] on filedocumented in this encounter Care Teams Batch Dumper Relationship Specialty Start Date End Date Cole Baires MD PCP - General 01/06/17 documented as of this encounter
--- OUTSIDE RECORDS SUMMARY | 2024-10-09 14:49 | XMS_ITS | Encounter Summary ---
Author Organization [facility] Address [address] [place] [phone] Phone Care Team Providers Care Security System Analyst Name Role Phone Cole Baires MD Primary Care Provider Unavailabl e Encounter Details Date Type Department Care Team (Late st Contact Info) Description 01/12/2017 Conversion Encounter [facility] - [address] [address] Social History Tobacco Use Types Packs/Day Years [...] on filedocumented in this encounter Care Teams Security System Analyst Relationship Specialty Start Date End Date Cole Baires MD PCP - General 01/06/17 documented as of this encounter
== END 2024-10-09 14:46 | disposition home or self-care (01) ==
PROVIDERS: Emergency Provider Emergency Medicine
DX: K04.7 Periapical abscess without sinus (principal); R68.84 Jaw pain; Z87.891 Personal history of nicotine dependence; Z79.899 Other long term (current) drug therapy
CPT/HCPCS: 99282; 99283